=== PATIENT | male | born 2000 | race Two or more races ===

== ENCOUNTER 2025-05-25 17:58 | Emergency (ER) | payer MEDICAID, SELFPAY ==
[2025-05-25 18:01] VITALS: BMI 29.0
[2025-05-25 18:23] VITALS: BP 116/82; PULSE 89; RESP 16; TEMP 36.8; O2SAT 99
--- NOTE | 2025-05-25 18:34 | XR_ITS ---
Examination: CT abdomen and pelvis without contrast. Coronal 3-D reconstructions. Sagittal 2-D reconstructions. 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 Low dose protocols were performed. One or more of the following dose reduction techniques were used; automated exposure control, adjustment of the mA and/or KV according to patient size, use of iterative reconstruction technique. Findings: No visualized liver or splenic lesions No gallstones No pancreatic or adrenal mass Again noted findings most consistent with congenital left ureteropelvic junction obstruction , horseshoe kidneys No ureteral calculi Normal appendix Contracted urinary bladder No prostatomegaly No bowel obstruction IMPRESSION: Again noted horseshoe kidneys with prominent likely congenital left ureteropelvic junction obstruction Recommend nuclear medicine kidney imaging and flow with Lasix to confirm congenital left ureteropelvic junction obstruction
--- NOTE | 2025-05-25 18:35 | PD.EDRME ---
Rapid Medical Screening Exam [facility] Arrival date/time: 05/25/25 17:58 24M with history of kidney cyst (that was supposed to be removed along with one of the kidneys) presents to ED with 1 week of worsening bilateral flank/low back pain (L>R). Patient denies fall/trauma. Patient works in the [employer]. Chief Complaint: Back Pain/Injury Vital signs: Vital Signs Temperature 98.3 F 05/25/25 18:23 Pulse Rate 89 05/25/25 18:23 Respiratory Rate 16 05/25/25 18:23 Blood Pressure 116/82 05/25/25 18:23 Pulse Oximetry (%) 99 05/25/25 18:23 Oxygen Delivery Method Room Air 05/25/25 18:23 Exam: Reduced ROM of back. Clinical Impression: Kidney stone vs kidney cyst/mass vs CKD/MAINOR vs UTI/pyelo vs back pain vs strain of lumbar back
[2025-05-25] MEDS: HYDROcodone/APAP 5/325 TABLET 1 TAB PO (19:03)
[2025-05-25 19:12] LABS: Alanine Aminotransferase 25 U/L (10-49); Albumin, Serum 4.8 gm/dL (3.5-5.0); Albumin/Globulin Ratio 2.0 (1.2-2.2); Alkaline Phosphatase 106 U/L (46-116); Anion Gap 7 (7-16); Aspartate Amino Transferase 26 U/L (0-34); BUN/Creatinine Ratio 7 Ratio (12-20); Bilirubin,Total 0.5 mg/dL (0.3-1.2); Blood Urea Nitrogen 8 mg/dL (9-23); Calcium 9.8 mg/dL (8.3-10.6); Calcium (Corrected) 9.8 mg/dL (8.5-10.1); Carbon Dioxide 29.3 mMol/L (20.0-31.0); Chloride 105 mMol/L (98-107); Creatinine (Component) 1.1 mg/dL (0.6-1.3); Estimated Creatinine Clearance 137.1 mL/min (>60); Globulin 2.4 gm/dL (2.3-3.5); Glucose 105 mg/dL (74-106); Lipase 33 U/L (12-53); Osmolality,Calculated 279 (275-295); Potassium 3.7 mMol/L (3.4-5.1); Sodium 141 mMol/L (136-145); Total Protein 7.2 gm/dL (5.7-8.2); eGFR > 60 See Note
[2025-05-25 20:29] LABS: Basophils # (Auto) 0.1 Thou/mm3 (0.0-0.2); Basophils % (Auto) 1 % (0-2.5); Eosinophils # (Auto) 0.2 Thou/mm3 (0.0-0.5); Eosinophils % (Auto) 2 % (0-10); Hematocrit 46.6 % (41.0-53.0); Hemoglobin 15.7 g/dL (13.5-16.0); Immature Granulocytes Auto 0.04 Thou/mm3 (0.00-0.00); Lymphocytes # (Auto) 1.6 Thou/mm3 (1.0-4.8); Lymphocytes % (Auto) 14 % (10-50); Mean Corpuscular HGB Conc 33.7 g/dl (31.0-37.0); Mean Corpuscular Hemoglobin 31.2 pg (25.0-35.0); Mean Corpuscular Volume 93 fL (80-100); Monocytes # (Auto) 1.0 Thou/mm3 (0.0-0.8); Monocytes % (Auto) 8 % (0-12); Neutrophils # (Auto) 9.0 Thou/mm3 (1.8-7.7); Neutrophils % (Auto) 75 % (37-80); Nucleated Red Blood Cell # 0.00 Thou/mm3 (0.00-0.00); Nucleated Red Blood Cell % 0 /100 WBC (0); Platelet Count 277 Thou/mm3 (140-440); RDW Standard Deviation 38.9 fL (35.1-43.9); Red Blood Count 5.03 Miln/mm3 (4.50-5.90); White Blood Count 12.0 Thou/mm3 (3.8-10.6)
[2025-05-25 21:40] LABS: Collection Type, Urine Clean Catch
[2025-05-25 21:48] LABS: Amorphous Crystals,Urine Present (Absent); Bacteria,Urine Rare; Bilirubin,Urine Negative (Negative); Blood,Urine Trace (Negative); Clarity,Urine Clear (Clear/Hazy); Color,Urine Yellow (Lt Yel-Yel); Glucose, Urine Negative (Negative); Ketones,Urine Negative (Negative); Leukocyte Esterase,Urine Positive (Negative); Nitrite,Urine Negative (Negative); PH,Urine 6.0 (5.0-7.0); Protein,Urine Trace (Neg - Trace); RBC,Urine 3 /hpf (0-3); Specific Gravity,Urine 1.020 (1.001-1.035); Squamous Epithelial Cell,Urine < 1 /hpf (0-5); Urobilinogen,Urine Negative mg/dL (0.0-1.0); WBC,Urine 42 /hpf (0-5)
[2025-05-25 22:03] LABS: Culture Indicated,Urine Yes
--- NOTE | 2025-05-25 22:29 | PD.EDBACK ---
ED Back Injury Pain RME/HPI General Chief Complaint: Back Pain/Injury Stated Complaint: BACK PAIN X1 WEEK Time Seen by Provider: 05/25/25 19:46 Arrival date/time: 05/25/25 17:58 24-year-old male patient with significant history of horseshoe kidney, came in for evaluation regarding low back pain. Onset of symptoms for the last 1 week has worsening low back pain, especially from positional changes example sitting to standing or lying in bed to standing. Patient denies any vomiting no fever denies any urinary incontinence denies any bladder incontinence. No medication was taken prior to ER visit. RME / HPI RME / HPI Narrative: 05/25/25 17:58 24M with history of kidney cyst (that was supposed to be removed along with one of the kidneys) presents to ED with 1 week of worsening bilateral flank/low back pain (L>R). Patient denies fall/trauma. Patient works in the [employer]. Exam: Reduced ROM of back. Impression: Kidney stone vs kidney cyst/mass vs CKD/MAINOR vs UTI/pyelo vs back pain vs strain of lumbar back Related Data Previous Rx's ?Medication ?Instructions ?Recorded cephalexin 500 mg capsule 500 mg PO Q6H 7 days #28 caps 05/25/25 cyclobenzaprine 10 mg tablet 10 mg PO TID PRN muscle spasm #30 05/25/25 tabs naproxen 500 mg tablet (Naprosyn) 500 mg PO BID PRN pain #20 tabs 05/25/25 Allergies Allergy/AdvReac Type Severity Reaction Status Date / Time No Known Allergies Allergy Verified 11/23/23 15:18 Review of Systems Review of Systems Narrative Review of Systems: Review of system reviewed and within normal limits except mentioned in HPI ED Exam Narrative Physical exam: VITAL SIGNS: Reviewed. GENERAL APPEARANCE: Alert and interactive, follows commands, no acute distress, HEAD AND FACE: Non-traumatic. ENT: PERRL, pink conjunctivitis, eyelid no trauma, Mucous membrane moist. NECK: Supple, nontender, no nuchal rigidity. CHEST: No tenderness, no crepitus, no paradoxical movement, no retractions. LUNGS: Clear, well ventilated, symmetric, no rales, no wheezing, no ronchi, no stridor, good breath sounds bilaterally. HEART: Regular rate, regular rhythm, no murmur, no gallops. ABDOMEN: Soft, positive bowel sounds, nondistended, no guarding, nontender, no rebound, no masses, RECTAL: Deferred. GENITAL: Deferred. NEUROLOGICAL: Gross motor function intact sensory function intact, Appropriate for age. MUSCULOSKELETAL: low back tenderness, full range of motion. EXTREMITIES: Nontender, full range of motion. SKIN: Color pink, dry, no rash, no lacerations, no abrasions, no contusions. LYMPHATICS: Deferred. Course Quality Measures none Orders Category Date Time Status CT abdomen pelvis wo con Stat Exams 05/25/25 18:34 Completed CBC Stat Lab 05/25/25 18:38 Completed CMP [Comprehensive Metabolic Panel] Stat Lab 05/25/25 18:38 Completed Lipase Stat Lab 05/25/25 18:38 Completed Urinalysis, C/S if Indicated Stat Lab 05/25/25 21:34 Completed Urine Culture Stat Lab 05/25/25 21:34 Received CYCLObenzaPRINE [Flexeril] Med 05/25/25 22:27 Discontinued 10 mg PO X1 ONE HYDROcodone*/APAP 5/325 [[place] 5/325] Med 05/25/25 18:34 Discontinued 1 tab PO X1 ONE Ketorolac Inj [Toradol Inj] Med 05/25/25 22:27 Discontinued 30 mg IM X1 ONE cefTRIAXone [Rocephin] 1,000 mg Med 05/25/25 22:27 Discontinued Lidocaine 1% 20 ml [Xylocaine 1% 20 ML] 2.1 ml IM X1 Vital Signs Vital signs: Vital Signs Temperature 98.3 F 05/25/25 18:23 Pulse Rate 89 05/25/25 18:23 Respiratory Rate 16 05/25/25 18:23 Blood Pressure 116/82 05/25/25 18:23 Pulse Oximetry (%) 99 05/25/25 18:23 Oxygen Delivery Method Room Air 05/25/25 18:23 Back Pain / Injury MDM Narrative MDM Narrative:: 24-year-old male patient with significant history of horseshoe kidney, came in for evaluation regarding low back pain. Onset of symptoms for the last 1 week has worsening low back pain, especially from positional changes example sitting to standing or lying in bed to standing. Patient denies any vomiting no fever denies any urinary incontinence denies any bladder incontinence. No medication was taken prior to ER visit. Patient's workup significant for UTI, and slight leukocytosis 12.0. 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 Stable for discharge home Patient data External records reviewed:: None Clinical information provided by:: patient Social determinants that could affect healthcare access:: none Patient has the following chronic illnesses:: History of horseshoe kidney How is presenting disease/condition affected by chronic disease/condition?: uneffected by Evaluation data The following diagnostics were reviewed and interpreted by me:: lab results and radiology exam(s) Lab and/or radiology exams considered but not ordered:: None Interpretation Summary: See above Medications / Prescriptions Medications or Prescriptions considered but not ordered:: None Medication administrations:: Medication Administration History Discontinued Medications Hydrocodone Bitart/Acetaminophen (Hydrocodone/Apap 5/325 Tablet) 1 tab PO X1 ONE Stop: 05/25/25 18:35 Last Admin: 05/25/25 19:03 Dose: 1 tab Documented By: OA Ceftriaxone Sodium 1,000 mg/ (Lidocaine HCl 2.1 ml) 0 mg IM X1 ONE Stop: 05/25/25 22:28 Cyclobenzaprine HCl (Cyclobenzaprine 5 Mg Tablet) 10 mg PO X1 ONE Stop: 05/25/25 22:28 Ketorolac Tromethamine (Ketorolac Inj 30 Mg/Ml Vial) 30 mg IM X1 ONE Stop: 05/25/25 22:28 See above Consultations Consultation(s) initiated? (list below): No Diagnosis Differential diagnosis back pain/injury: lumbar radiculopathy and strain of lumbar region Most likely diagnosis given after review of the tests above:: UTI, low back pain Admission Indicated Admission indicated?: not indicated Admission Request Was there a request for admission?: No Disposition Plan Disposition Plan: Discharge Discharge Attestation Discharge Attestation: The patient and all family members were given an opportunity to ask questions and understood the discharge instructions. Discharge instructions specifically effects, indications for sooner follow up or return to the emergency department, and the expected course of current diagnosis. Patient condition: Stable Discharge Plan Plan Patient Disposition: HOME (Self Care) Discharge Disposition comment: stable Prescriptions/Referrals Prescriptions/Med Rec: New cephalexin 500 mg capsule 500 mg PO Q6H 7 Days Qty: 28 0RF cyclobenzaprine 10 mg tablet 10 mg PO TID PRN (Reason: muscle spasm) Qty: 30 0RF naproxen [Naprosyn] 500 mg tablet 500 mg PO BID PRN (Reason: pain) Qty: 20 0RF Referrals: No Primary/Family,Physician [Primary Care Provider] - In 1 week Problem List Clinical Impression: UTI (urinary tract infection), Low back pain, Horseshoe kidney Patient/Caregiver Discharge Instructions Discharge Activity: activity as tolerated Education Materials: Back Safety Bed Additional Instructions: Thank you for the opportunity for serving you today. You are stable for discharged . You are advised to: Follow-up with your PCP in 1 to 2 days Return to ED for worsening of symptoms Increase oral fluids Take medication as prescribed Print Language: Afghan Stand Alone Forms: Viry Award Info., Patient Portal Info Letter PA/TRAINING ASSISTANT Supervising Physician LJ/TRAINING ASSISTANT Supervising Physician: MD Magdaleno
[2025-05-25] MEDS: KETOROLAC INJ 30 MG/ML VIAL IM (23:00)
[2025-05-25] MEDS: cefTRIAXone 1,000 MG, LIDOCAINE 1% 20 ML 2.1 ML IM (23:01)
== END 2025-05-25 23:32 | disposition home or self-care (01) ==
PROVIDERS: Physician Assistant; Emergency Provider Family Medicine
DX: S39.92XA Unspecified injury of lower back, initial encounter (principal); W19.XXXA Unspecified fall, initial encounter; N39.0 Urinary tract infection, site not specified; Q63.1 Lobulated, fused and horseshoe kidney
CPT/HCPCS: 36415; 74176; 80053; 81001; 83690; 85025; 87086; 96372; 99283; J0696; J1885; J3490; A9270